=== PATIENT | female | born 1990 | race Caucasian/White ===

== ENCOUNTER 2022-07-06 20:32 | Outpatient (CLI) | payer OTHER | END 2022-07-06 20:33 | disposition critical access hospital (66) | LOC: EMS 20:32 | DX: S49.92XA Unspecified injury of left shoulder and upper arm, initial encounter (principal); V00.121A Fall from non-in-line roller-skates, initial encounter; Y93.51 Activity, roller skating (inline) and skateboarding; Y92.331 Roller skating rink as the place of occurrence of the external cause | CPT/HCPCS: A0425; A0427 ==

== ENCOUNTER 2022-07-06 20:52 | Emergency (ER) | payer OTHER ==
--- NOTE | 2022-07-06 20:56 | ED Physician Documentation ---
PD HPI UPPER EXT INJURY - Stated complaint Stated Complaint: FELL, LEFT ARM PAIN - History obtained from History obtained from: Patient - Additonal information Additional information: HPI from patient. Patient is [place] in by ambulance from [place] rollerskating rink. Approximately 30 minutes prior to arrival, patient was rollerskating when she fell onto her left upper extremity. Patient is right-hand dominant. Her chief and only complaint is pain in the mid/upper left humerus. She received a total of 10 mg intravenous morphine by EMS as well as 4 mg of IV Zofran. Patient says she feels adequate pain relief with these interventions. Patient denies head injury, denies loss of consciousness. Patient denies any chance of . Review of Systems Musculoskeletal: reports: Extremity pain. denies: Neck pain, Back pain, Joint pain Neurologic: denies: Focal weakness, Numbness PD PAST MEDICAL HISTORY - Past Medical History Past Medical History: No - Present Medications Home Medications: Ambulatory Orders Medication Instructions Recorded Confirmed HYDROcod/ACETAM 5/325 [[place] 5/325] 1 - 2 tablet PO Q6H PRN #14 tablet 07/06/22 Ondansetron Odt [Zofran] 4 mg TL Q6H PRN #10 tablet 07/06/22 Sertraline HCl [Zoloft] 50 mg PO DAILY 07/06/22 07/06/22 - Allergies Allergies/Adverse Reactions: Allergies Allergy/AdvReac Type Severity Reaction Status Date / Time No Known Drug Allergies Allergy Verified 07/06/22 21:01 - Living Situation Living Arrangement: reports: At home PD ED PE NORMAL - Vitals Vital signs reviewed: Yes - General General: Alert and oriented X 3, No acute distress (mostly NAD at rest, but appears to have painful discomfort at times during H+P, and obvious discomfort with any movement of RUE at elbow or shoulder), Well developed/nourished - Neck Neck: No bony TTP - Neuro Neuro: Alert and oriented X 3, No motor deficit (left hand 5/5 investigator claims, 5/5 finger abduction (spread). ), No sensory deficit (LTS intact left hand, fingers/thumb) Eye Opening: Spontaneous Motor: Obeys Commands Verbal: Oriented GCS Score: 15 PD ED PE EXPANDED - Extremities Extremities: Tenderness (left humerus mid-shaft with fullness on palpation. no abrasion nor laceration), Limited ROM (LUE (elbow/shoulder)), Vascular intact (left hand/fingers with brisk capillary refill. strong left radial pulse) Results - Vitals Vitals: Oxygen O2 Source Room air - Rads (name of study) left humerus xrays Relevant Findings:: EMP independent interpretation of test (I reviewed the xrays and there is a mid-shaft left humerus transvere fracture with displacement of less than the width of the mid-shaft diameter) Procedures - Splint (location) - Minor Upper extremity left Splint applied by: Tech Type of splint: Fiberglass, Long arm, Posterior Other: Patient tolerated well, No complications, Neurovascular intact, Good alignment, Sling provided PD Medical Decision Making - ED course Complexity details: reviewed results, re-evaluated patient, considered differential, d/w patient ED course: Mid-shaft left humeral fracture after falling while roller skating this evening. Adequate analgesia is achieved with IV dilaudid. she is given take-home pack of vicodin and rx for vicodin and ondansetron are e-prescribed to her pharmacy of choice. Splint placed as per procedure note, above. Sling is then placed by technical artist. I discussed the case with Dr. Parrish (on-call orthopedic surgery for [facility]), recommends follow up within one week. I relayed this recommendation to the patient. Return precautions d/w patient . I am prescribing a short course of short-acting opioid pain medication for this patient. 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 I have discussed that the opioids are for short term therapy only, and will not be refilled from the ED. Departure - Departure Disposition: 01 Home, Self Care Clinical Impression: Humerus shaft fracture Qualifiers: Encounter type: initial encounter Fracture type: closed Fracture morphology: transverse Fracture alignment: nondisplaced Laterality: left Qualified Code(s): S42.325A - Nondisplaced transverse fracture of shaft of humerus, left arm, initial encounter for closed fracture Condition: Good Instructions: ED Fx Upper Ext Follow-Up: Deondre Parrish MD [Provider Admit Priv/Credential] - Within 1 week Prescriptions: HYDROcod/ACETAM 5/325 [[place] 5/325] 1 - 2 tablet PO Q6H PRN #14 tablet PRN Reason: Pain Ondansetron Odt [Zofran] 4 mg TL Q6H PRN #10 tablet PRN Reason: Nausea / Vomiting Comments: The x-rays show a fracture of your humerus on the left side, mid shaft. I spoke with the on-call orthopedic surgeon and he says that following up within 1 week is appropriate. Keep the splint and sling in place until you are seen in follow-up and until you are instructed otherwise. Prescriptions for Vicodin (narcotic pain medication) and ondansetron (antinausea medication) have been electronically submitted to the [facility] pharmacy in [place]. You can take ibuprofen in addition to the Vicodin if you need more pain relief than the Vicodin provides (or ibuprofen alone if the Vicodin is stronger than you need). Do not take any Tylenol or Tylenol containing products within 6 hours of a dose of Vicodin, as there is already acetaminophen in the Vicodin and too much acetaminophen can be very dangerous. You will need to follow-up with an orthopedic surgeon. I have provided the contact information for the orthopedic surgeon on-call in these discharge sheets. I recommend a call in the morning when the office opens and ask if they can see you with the insurance that you have. If that group does not work with your insurance, you can then contact either primary care provider or the insurance provider and ask about the referral process to orthopedics. I am prescribing a short course of narcotic pain medication for you. These are potentially dangerous and addictive medications that should be used carefully. These medications may constipate you. Take an pbfw-noz-hcgomds stool softener (docusate) twice daily with plenty of water while taking these medications. If you go 24 hours without a bowel movement, take [id number] miralax, per package instructions. Do not drink or drive while taking these medications. If you received narcotic or sedating medications while in the emergency department, do not drive for 24 hours. Store this medication in a safe, secure place and out of reach of children. It is a violation of federal law to give or sell this medication to another person or to use in a manner other than prescribed. The ED will not refill narcotic prescriptions, including prescriptions lost or stolen. To dispose of unwanted medications: 1. [facility] at [address] in [place] has a medication drop box. They accept prescription medications (in pill form) Sunday through Sunday 9:00 a.m. to 5:00 p.m. 2. [facility] [employer] accepts prescription medications (in pill form only) for disposal year round. Call for more information. 3. Contact the [facility] for the next [facility] sponsored prescription drug collection event. , [phone], or [phone]; Discharge Date/Time: 07/06/22 23:26
[2022-07-06] MEDS ORDERED: KETOROLAC 15 MG/ML VIAL IVP STA (21:04)
--- NOTE | 2022-07-06 22:19 | XRAY Report ---
PROCEDURE: Humerus LT INDICATIONS: fall, pain and tenderness mid/upper humerus TECHNIQUE: 2 views of the humerus were acquired. COMPARISON: None. FINDINGS: Bones: There is a mildly displaced fracture of the mid humeral shaft. There is slight associated medi al displacement. No suspicious bony lesions. Soft tissues: No suspicious soft tissue calcifications. IMPRESSION: 1. Mildly displaced mid humeral shaft fracture. Reviewed by: Barber Ordaz MD on 07/06/2022 10:17 PM [facility] Approved by: Barber Ordaz MD on 07/06/2022 10:17 PM [facility] Station ID: [id number]
[2022-07-06] MEDS ORDERED: HYDROmorphone 1 MG/ML CARPUJECT IVP STA ×2 (22:21→22:49)
[2022-07-06] MEDS ORDERED: HYDROcod/ACET 5/325 Prepack 4 PO STA (22:21)
[2022-07-06 23:04] VITALS: BP 114/79
== END 2022-07-06 23:26 | disposition home or self-care (01) ==
LOC: ED 20:52
DX: S42.325A Nondisplaced transverse fracture of shaft of humerus, left arm, initial encounter for closed fracture (principal); W18.30XA Fall on same level, unspecified, initial encounter; Y93.51 Activity, roller skating (inline) and skateboarding
CPT/HCPCS: 29105; 73060; 96374; 96375; 96376; 99283; 99284; J1170